=== PATIENT | female | born 1945 | race Two or more races ===

== ENCOUNTER 2020-03-08 11:30 | Outpatient (AMBR) | payer OTHER, MEDICAID, SELFPAY ==
--- NOTE | 2020-03-04 13:32 | PT.ODAYNRPT ---
PT Outpatient Daily Note Date of Service: March 04, 2020 OP Daily Note Visit Reasons: right wrist Outpatient Physical Therapy Treatment Date: 03/04/20 Subjective: Pt's wrist is doing okay. Pt mention that she can make a full fist now. Pt still has difficulty with moving her wrist. Since her initial evaluation Pt has been moving her wrist and hand using a soft ball. Objective: Please see flow chart for list of ther ex performed Assessment: tolerate exercises with minimal pain. Pt demonstrate full finger flexion AROM except 1st digit Plan: Continue with PT Length of Time (minutes) of Treatment: 40 Minutes Office Procedures PT Procedures PT Date of Service: 03/04/20 Therapeutic Exercise 45 minutes: Yes
--- NOTE | 2020-03-08 12:40 | PT.ODAYNRPT ---
PT Outpatient Daily Note Date of Service: March 08, 2020 OP Daily Note Visit Reasons: right wrist Outpatient Physical Therapy Treatment Date: 03/08/20 Subjective: Pt's wrist feels much better. Pt mention that she can move it better with less pain Objective: Please see flow chart for list of ther ex performed Assessment: tolerate exercises with minimal pain; notice more wrist flexion and extension ROM Plan: Continue with PT Length of Time (minutes) of Treatment: 30 Minutes Office Procedures PT Procedures PT Date of Service: 03/04/20 Therapeutic Exercise 45 minutes: Yes PT Procedures PT Date of Service: 03/08/20 Therapeutic Exercise 30 minutes: Yes
== END 2020-03-14 23:59 | disposition home or self-care (01) ==
PROVIDERS: PCP Family Medicine; Referring Provider Family Medicine; Visit Provider Orthopaedic Surgery
DX: M25.531 Pain in right wrist (principal); R53.1 Weakness; Z98.890 Other specified postprocedural states
CPT/HCPCS: 97110

== ENCOUNTER 2020-03-26 12:54 | Outpatient (AMBR) | payer OTHER, MEDICAID, SELFPAY ==
--- NOTE | 2020-03-20 15:49 | PT.ODAYNRPT ---
PT Outpatient Daily Note Date of Service: March 20, 2020 OP Daily Note Visit Reasons: right wrist Outpatient Physical Therapy Treatment Date: 03/20/20 Subjective: Pt's wrist is better. Pt still notice some tingling or numbness intermittently. Pt found that by soaking her hand in hot water seems to help her with the stiffness Objective: Please see flow chart for list of ther ex performed Assessment: tolerate exercises with minimal pain Plan: Continue with PT Length of Time (minutes) of Treatment: 30 Minutes Office Procedures PT Procedures PT Date of Service: 03/20/20 Therapeutic Exercise 30 minutes: Yes
--- NOTE | 2020-03-22 10:20 | PT.ODAYNRPT ---
PT Outpatient Daily Note Date of Service: 03/22/20 OP Daily Note Visit Reasons: right wrist Outpatient Physical Therapy Treatment Date: 03/22/20 Subjective: Pt mention that her wrist still stiff but is feeling better. Pt will be seeing the surgeon on wednesday Objective: Please see flow chart for list of ther ex performed Assessment: tolerate exercises with minimal pain Plan: Continue with PT Length of Time (minutes) of Treatment: 30 Minutes Office Procedures PT Procedures PT Date of Service: 03/20/20 Therapeutic Exercise 30 minutes: Yes PT Procedures PT Date of Service: 03/22/20 Therapeutic Exercise 30 minutes: Yes
--- NOTE | 2020-03-26 13:19 | PT.ODS1RPT ---
PT OP Progress/Discharge Note Date of Service: 03/26/20 Progress Note/DC Note Progress Note/Discharge Note: DC Note Patient Information Visit Reasons: right wrist Medical Diagnosis: M25.531 Treatment Dx #1: Right Wrist Mobility Deficits Treatment Dx #2: Right Hand Weakness Service Continue Service or Discharge: Discharge Discharge Date: 03/26/20 Status Subjective: Pt mention that her wrist is much better. Pt saw surgeon yesterday and mention that she'll need a nerve conduction test to see if the nerve is damage in her hand. Pt still notice some numbness in her finger tips. Pt has been able to start light cooking, cleaning, chores, lift, and bag sewer smaller objects. At this time Pt will like to be release from care due to car registration soon and will not have transportation to come to therapy. Pt feels comfortable being release from physical therapy with exercises to continue at home. Objective: Right Wrist AROM: 20 deg Extension 18 deg Supination: WNL Pronation: 48 deg Radial Deviation: 10 deg Ulnar Deviation: 11 deg Right MMTs: grossly 3/5 Special Events Director Strength L: 30 lbs R: 24 lbs Right Shoulder AROM: all motions are WNL Right Shoulder MMTs: grossly 3/5 Assessment: Pt demonstrate improvement with right wrist mobility and strength allowing to resume ADLs, chores, and recreational activities with less limitation. Pt moderately met all set goals in therapy and will be d/c from care per Pt's request. Pt was instructed on HEP last session and educated to continue exercises to maintain overall mobility. Pt performed all exercises safely, thank you for your referrals. Plan: D/C home with HEP and follow up with MD ROMERO Office Procedures PT Procedures PT Date of Service: 03/20/20 Therapeutic Exercise 30 minutes: Yes PT Procedures PT Date of Service: 03/22/20 Therapeutic Exercise 30 minutes: Yes PT Procedures PT Date of Service: 03/26/20 Therapeutic Exercise 30 minutes: Yes
== END 2020-04-14 23:59 | disposition home or self-care (01) ==
PROVIDERS: PCP Family Medicine; Referring Provider Family Medicine; Visit Provider Orthopaedic Surgery
DX: M25.531 Pain in right wrist (principal); R53.1 Weakness
CPT/HCPCS: 97110

== ENCOUNTER → 2024-09-20 | Outpatient (CLI) | payer OTHER, MEDICAID, SELFPAY ==
[2024-09-20 10:17] LABS: Basophils # (Auto) 0.1 Thou/mm3 (0.0-0.2); Basophils % (Auto) 1 % (0-2.5); Eosinophils # (Auto) 0.1 Thou/mm3 (0.0-0.5); Eosinophils % (Auto) 2 % (0-10); Hematocrit 37.2 % (36.0-46.0); Hemoglobin 12.9 g/dL (12.0-16.0); Immature Granulocytes % (Auto) 0 % (0-0); Immature Granulocytes Auto 0.02 Thou/mm3 (0.00-0.00); Lymphocytes # (Auto) 1.1 Thou/mm3 (1.0-4.8); Lymphocytes % (Auto) 19 % (10-50); Mean Corpuscular HGB Conc 34.7 g/dl (31.0-37.0); Mean Corpuscular Hemoglobin 33.7 pg (25.0-35.0); Mean Corpuscular Volume 97 fL (80-100); Monocytes # (Auto) 0.5 Thou/mm3 (0.0-0.8); Monocytes % (Auto) 9 % (0-12); Neutrophils % (Auto) 69 % (37-80); Nucleated Red Blood Cell % 0 /100 WBC (0); Platelet Count 132 Thou/mm3 (140-440); RDW Standard Deviation 47.8 fL (36.4-46.3); Red Blood Count 3.83 Miln/mm3 (4.00-5.20); White Blood Count 5.8 Thou/mm3 (3.6-11.0)
[2024-09-20 10:19] LABS: Glucose Estimated Average 143 mg/dL (80-131); Hemoglobin A1C 6.6 % Hgb (4.8-6.0)
[2024-09-20 10:35] LABS: Sed Rate (ESR) 4 mm/hr (0-30)
[2024-09-20 10:44] LABS: Alanine Aminotransferase 16 U/L (10-49); Albumin, Serum 4.5 gm/dL (3.4-4.8); Albumin/Globulin Ratio 2.4 (1.2-2.2); Alkaline Phosphatase 70 U/L (46-116); Anion Gap 6 (7-16); Aspartate Amino Transferase 25 U/L (0-34); BUN/Creatinine Ratio 18 Ratio (12-20); Bilirubin,Total 0.6 mg/dL (0.3-1.2); Blood Urea Nitrogen 18 mg/dL (9-23); C-Reactive Protein < 0.4 mg/dL (0.0-0.9); Calcium 9.8 mg/dL (8.3-10.6); Calcium (Corrected) 9.8 mg/dL (8.5-10.1); Carbon Dioxide 28.5 mMol/L (20.0-31.0); Cardiac Risk Estimate 2.1 RATIO (3.7-5.6); Chloride 105 mMol/L (98-107); Cholesterol 111 mg/dL (132-200); Globulin 1.9 gm/dL (2.3-3.5); Glucose 130 mg/dL (74-106); HDL Cholesterol 54 mg/dL (40-60); LDL Cholesterol,Calculated 33 mg/dL (0-130); Osmolality,Calculated 281 (275-295); Potassium 4.8 mMol/L (3.4-5.1); Sodium 139 mMol/L (136-145); Total Protein 6.4 gm/dL (5.7-8.2); Triglycerides 121 mg/dL (30-150); eGFR 58 See Note
[2024-09-20 10:55] LABS: Creatinine MALB Rnd Ur 95 mg/dL (30-125); Microalbumin Creat Ratio 4 mg/gCrea (<30); Microalbumin, Random Urine 4 mg/L (0-300)
== END | disposition home or self-care (01) ==
LOC: COPL 09:12
PROVIDERS: PCP Family Medicine; Referring Provider Nurse Practitioner Family; Visit Provider Family Medicine
DX: E11.65 Type 2 diabetes mellitus with hyperglycemia (principal); M05.79 Rheumatoid arthritis with rheumatoid factor of multiple sites without organ or systems involvement
CPT/HCPCS: 36415; 80053; 80061; 82043; 82570; 83036; 85025; 85652; 86140